=== PATIENT | male | born 1965 | race Caucasian/White ===

== ENCOUNTER 2024-02-22 23:25 | Emergency (ER) | payer OTHER, SELFPAY ==
--- NOTE | ~2024-02-22 | XR_ITS ---
EXAMINATION: XR CHEST CLINICAL INFORMATION: Cough COMPARISON: None available. TECHNIQUE: Frontal view of the chest was obtained. FINDINGS: No significant abnormality is noted involving the heart, lungs, mediastinum, bony thorax or soft tissues. No gross consolidation. No pleural effusions. Heart size normal. XR/XR chest 1V IMPRESSION: No acute intrathoracic disease.
[2024-02-22 23:33] VITALS: BP 189/99; O2SAT 96; BMI 29.8
[2024-02-22 23:35] VITALS: BP 183/91; PULSE 81; RESP 14; TEMP 36.8; O2SAT 96
[2024-02-23] VITALS (9 sets, daily range): BP systolic 162–193; BP diastolic 84–98; PULSE 81–99; RESP 15–18; TEMP 37; O2SAT 93–95
[2024-02-23 00:04] LABS: Basophils Absolute Auto 0.1 X10*3/uL (0.0-0.2); Basophils Percent Auto 0.9 % (0-2); Eosinophils Absolute Auto 0.2 X10*3/uL (0.0-0.4); Eosinophils Percent Auto 2.8 % (0-4); Hematocrit 40.4 % (42.0-52.0); Hemoglobin 14.5 g/dl (14.0-18.0); Imm Gran Abs Auto 0.03 X10*3/uL (0.00-0.03); Imm Gran Pct Auto 0.4 % (0.0-0.4); Lymphocytes Absolute Auto 2.4 X10*3/uL (1.2-4.9); Lymphocytes Percent Auto 28.2 % (20-40); MANUAL DIFF FLAG NO; Mean Corpuscular HGB Conc 35.9 g/dl (31.0-36.0); Mean Corpuscular Hemoglobin 32.2 pg (27.0-33.0); Mean Corpuscular Volume 89.6 fL (80.0-98.0); Mean Platelet Volume 9.4 fL (9.4-12.4); Monocytes Absolute Auto 0.9 X10*3/uL (0.1-1.2); Monocytes Percent Auto 10.2 % (2-11); Neutrophils Absolute Auto 4.9 x10*3/uL (2.0-8.3); Neutrophils Percent Auto 57.5 % (45-73); Platelet Count 228 X10*3/uL (160-400); Red Blood Count 4.51 X10*6/uL (4.60-5.80); Red Cell Distribution Width 13.4 % (11.0-16.0); White Blood Count 8.4 X10*3/uL (4.8-10.8)
[2024-02-23 00:20] LABS: Anion Gap 15 (12-20); Blood Urea Nitrogen 15 mg/dL (9-16); Calcium 8.2 mg/dL (8.4-10.2); Carbon Dioxide 22 mmol/L (22-29); Chloride 104 mmol/L (96-108); Creatinine Clr Calc Pharmacy 87.2; Estimated Glomerular Filt Rate > 60; Ethanol < 10 mg/dL; Glucose Random 99 mg/dL (60-115); Magnesium 1.6 mg/dL (1.6-2.6); Potassium 3.9 mmol/L (3.3-5.1); Sodium 137 mmol/L (135-145)
[2024-02-23 00:47] LABS: Influenza A PCR NEGATIVE (Negative); Influenza B PCR NEGATIVE (Negative); Resp Syncy Virus RNA Qual PCR NEGATIVE (Negative); SARS COV2 PCR INHOUSE NEGATIVE (Negative)
--- NOTE | 2024-02-23 02:27 | ECG_ITS ---
Test Reason : HTN Blood Pressure : / mmHG Vent. Rate : 086 BPM Atrial Rate : 086 BPM P-R Int : 138 ms QRS Dur : 064 ms QT Int : 364 ms P-R-T Axes : 075 039 050 degrees QTc Int : 435 ms Normal sinus rhythm Normal ECG No previous ECGs available Referred By: Luz Ortiz Electronically Signed By:ALLIE RODRIGUES
--- NOTE | 2024-02-23 02:34 | ED_ITS ---
HPI - SOB/Dyspnea General Chief Complaint: Dyspnea Stated Complaint: SOB HTN Time Seen by Provider: 02/23/24 02:10 Source: patient and EMS Mode of arrival: EMS Limitations: no limitations History of Present Illness ED Provider: Dr. Luz Ortiz HPI Narrative: Patient comes to the emergency room complaining of shortness of breath. Patient states that for the last few hours, patient states that he feels that he can not get a full breath of air. Patient denies any wheezing. Patient admits that he has history of asthma and COPD but has not been wheezing lately. Patient coming from [facility], per staff, patient's blood pressure was 200/100. Patient states that he does not have blood pressure medications. Patient denies any chest pain or headache Related Data Previous Rx's ?Medication ?Instructions ?Recorded losartan 50 mg tablet 50 mg PO DAILY #30 tabs 02/23/24 Allergies Allergy/AdvReac Type Severity Reaction Status Date / Time Penicillins Allergy Unknown Verified 02/22/24 23:37 Review of Systems 2 Review of Systems: Constitutional : No Weight loss, No Fever, No Chills, No Night Sweats, No Fatigue, No Malaise ENT/Mouth : No Hearing loss, No Ear Pain, No Nasal Congestion, No Sinus Pain, No Hoarseness, No sore throat, No Rhinorrhea, No Swallowing Difficulty Eyes: No Eye Pain, No Swelling, No Redness, No Foreign Body, No Discharge, No Vision Changes Cardiovascular : No Chest Pain, no orthopnea no palpitations Respiratory : No Cough, No Sputum, No Wheezing, No Smoke Exposure, complaining of Dyspnea at rest Gastrointestinal : No Nausea, No Vomiting, No Diarrhea, No Constipation, No abdominal Pain, No Hematochezia, No Melena Genitourinary : no irregular bleeding, No Dysuria, No Urinary Frequency, No Hematuria, No Urinary Incontinence, No Urgency, No Flank Pain, No Urinary Flow Changes, No Hesitancy Musculoskeletal : No joint pain, No Myalgias, No Joint Swelling Skin : No Skin Lesions, No rash Neuro : No Weakness, No Numbness, No Paresthesias, No Loss of Consciousness, No Dizziness, No Headache Psych : No Anxiety/Panic, No Depression, No SI/HI/AH/VH, No Social Issues, Heme/Lymph: No Bruising, No Bleeding,No Lymphadenopathy Endocrine : No Polyuria, No Polydipsia, No Temperature Intolerance PMFSH Social History Social History Alcohol intake: current Alcohol intake frequency: a few times a week Smoked in Last 30 Days: Yes Use of substances other than those prescribed or required for medical reasons: No Advance Directives: No Advance Directives Information Provided: Yes Physical Exam 2 Vital Signs: Vital Signs: Last Vital Signs Temp 98.2 F 02/22/24 23:35 Pulse 81 02/23/24 04:37 Resp 18 02/23/24 04:37 BP 162/84 H 02/23/24 04:37 Pulse Ox 93 02/23/24 04:37 O2 Del Method Room Air 02/23/24 04:37 BMI result Body Mass Index 29.8 Const: Other: Appearance: Alert. Oriented X3. No acute distress. Eyes: Pupils equal, round and reactive to light. ENT: Pharynx normal. Neck: Normal inspection. Neck supple. No lymph nodes noted. No crepitus CVS: Normal heart rate and rhythm. Pulses normal. Normal S1 and S2 Respiratory: No respiratory distress. Breath sounds normal. No Wheezing. No rales , oxygen saturation 95% on room air Abdomen: Soft and nontender. No rigidity. No distention. Skin: Skin warm and dry. Normal skin color. Normal skin turgor. Extremities: No lower extremity edema. No Lacerations. No Rash Neuro: Oriented X 3. No motor deficit. No sensory deficit. Moving all extremities. No slurred speech. CN 2 through 12 grossly intact Psych: calm, cooperative, normal affect Course Course Course Narrative: -ambulation O2 pending Medications Administered Discontinued Medications Generic Name Dose Route Start Last Admin Trade Name Juliann PRN Reason Stop Dose Admin Amlodipine Besylate 10 mg 02/23/24 02:33 02/23/24 02:37 Amlodipine Besylate 10 Mg Tablet PO 02/23/24 02:34 10 mg ONCE ONE Administration Protocol Labetalol HCl 5 mg 02/23/24 04:00 02/23/24 04:05 Labetalol Hcl 100 Mg/20 Ml Vial IVPUSH 02/23/24 04:01 5 mg ONCE ONE Administration Medical Decision Making Medical Decision Making [facility] Narrative: -my interpretation of EKG, normal sinus rhythm, heart rate 86, no ST segment depression no lay elevation, no T-wave inversion, QTC 435 -my interpretation of labs: Hematology and chemistry within normal limits, influenza test negative my D-dimer negative, BNP negative -my interpretation of chest x-ray, no acute abnormality, no pneumonia or infiltrates -patient was ambulated in the emergency room, oxygen saturation 93% on above -orthostatic vitals were negative Wells PE criteria score is 0 -patient continues having a blood pressure of 189/96 despite a dose of amlodipine, patient will be getting a dose of labetalol IV. -after amlodipine and IV labetalol, patient's blood pressure 162/84, patient denies any chest pain or chest pressure. -patient does not have a diagnosis of hypertension, but given his elevated blood pressure, we will go ahead and start blood pressure medications at home. -patient will be returning to [place], patient on a [facility] 12 Differential Diagnosis Differential Diagnoses: The differential diagnosis associated with the presentation includes (Viral syndrome, bronchitis, PE, pneumonia, CHF) Admission/Observation Consideration of admission/observation: Escalation of care including admission/observation considered Lab Data MDM Lab Attestation statement: I reviewed the patient's lab results. 02/22/24 23:59 02/22/24 23:58 Labs: Lab Results 02/22/24 02/22/24 02/23/24 Range/Units 23:58 23:59 02:40 WBC 8.4 (4.8-10.8) X10*3/uL RBC 4.51 L (4.60-5.80) X10*6/uL Hgb 14.5 (14.0-18.0) g/dl Hct 40.4 L (42.0-52.0) % MCV 89.6 (80.0-98.0) fL MCH 32.2 (27.0-33.0) pg MCHC 35.9 (31.0-36.0) g/dl RDW 13.4 (11.0-16.0) % Plt Count 228 (160-400) X10*3/uL MPV 9.4 (9.4-12.4) fL Immature Gran % (Auto) 0.4 (0.0-0.4) % Neut % (Auto) 57.5 (45-73) % Lymph % (Auto) 28.2 (20-40) % [place] % (Auto) 10.2 (2-11) % Eos % (Auto) 2.8 (0-4) % Baso % (Auto) 0.9 (0-2) % Lymph # (Auto) 2.4 (1.2-4.9) X10*3/uL [place] # (Auto) 0.9 (0.1-1.2) X10*3/uL Eos # (Auto) 0.2 (0.0-0.4) X10*3/uL Baso # (Auto) 0.1 (0.0-0.2) X10*3/uL Abs Immat Gran (auto) 0.03 (0.00-0.03) X10*3/uL Absolute Neuts (auto) 4.9 (2.0-8.3) x10*3/uL Absolute Nucleated RBC 0.000 (0.0-0.012) X10*3/uL Nucleated RBC % (auto) 0.0 (0.0-0.2) /100WBC Hold Purple Top SEE NOTE PT 11.7 (11.1-13.3) SEC INR 1.0 (0.9-1.1) D-Dimer High Sensitivty 203 NG/ML Sodium 137 (135-145) mmol/L Potassium 3.9 (3.3-5.1) mmol/L Chloride 104 (96-108) mmol/L Carbon Dioxide 22 (22-29) mmol/L Anion Gap 15 (12-20) BUN 15 (9-16) mg/dL Creatinine 0.98 (0.5-1.4) mg/dL Estim Creat Clear Calc 87.2 Estimated GFR > 60 Random Glucose 99 (60-115) mg/dL Calcium 8.2 L (8.4-10.2) mg/dL Magnesium 1.6 (1.6-2.6) mg/dL B-Natriuretic Peptide < 10 (<100) pg/mL Ethyl Alcohol < 10 mg/dL Influenza Type A (PCR) NEGATIVE (Negative) Influenza Type B (PCR) NEGATIVE (Negative) RSV RNA Qual (PCR) NEGATIVE (Negative) SARS-CoV-2 RNA (RT-PCR) NEGATIVE (Negative) Independent Interpretation I performed an independent interpretation of an: Plain X-Ray Radiology Impression Discussion of test interpretation with radiology: I have reviewed the radiologist's reading. Radiologist Impression: No significant abnormality is noted involving the heart, lungs, mediastinum, bony thorax or soft tissues. No gross consolidation. No pleural effusions. Heart size normal. XR/XR chest 1V IMPRESSION: No acute intrathoracic disease. Critical Care Time Critical Care Time Critical Care Time: Yes Total Critical Care Time: 45 Attestation: I have personally provided critical care time. Time includes review of lab data, radiology results, discussion with consultants, and monitoring for potential decompensation. Intervention performed as documented. Discharge Plan Discharge Clinical Impression: Hypertension, Acute dyspnea Patient Disposition: Home, Self-Care Instructions: Heart Healthy Diet (DC), Dyspnea (ED), Hypertension (ED) Additional Instructions: Please follow-up with your primary care physician tomorrow. If you have any worsening or new symptoms, please return to the emergency room or call 911 Prescriptions: New losartan 50 mg tablet 50 mg PO DAILY Qty: 30 2RF Print Language: Vietnamese
[2024-02-23] MEDS: amLODIPine Besylate 10 MG TABLET PO (02:37)
[2024-02-23 02:55] LABS: Prothrombin Time 11.7 SEC (11.1-13.3)
[2024-02-23 02:57] LABS: D Dimer High Sensitivity 203 NG/ML
[2024-02-23 03:28] LABS: B Type Natriuretic Peptide < 10 pg/mL (<100)
[2024-02-23] MEDS: Labetalol HCL 100 MG/20 ML VIAL IVPUSH (04:05)
== END 2024-02-23 05:20 | disposition home or self-care (01) ==
PROVIDERS: Emergency Provider Emergency Medicine
DX: R06.02 Shortness of breath (principal); M25.50 Pain in unspecified joint; I10 Essential (primary) hypertension; Z51.81 Encounter for therapeutic drug level monitoring; Z79.899 Other long term (current) drug therapy; Z03.818 Encounter for observation for suspected exposure to other biological agents ruled out
CPT/HCPCS: 0241U; 36415; 71045; 80048; 80307; 83735; 83880; 85025; 85379; 85610; 93005; 96374; 99284; 99285; J1920

== ENCOUNTER → 2024-02-23 02:27 | Outpatient (BNV) | payer OTHER, SELFPAY | PROVIDERS: Emergency Provider Emergency Medicine; Visit Provider Internal Medicine | DX: I10 Essential (primary) hypertension (principal) | CPT/HCPCS: 93010 ==